=== PATIENT | female | born 1965 | race African-American/Black ===

== ENCOUNTER 2020-05-24 16:52 | Observation (INO) ==
[2020-05-24] MEDS ORDERED: SODIUM CHLORIDE 0.9% 1,000 ML IV STA ×2 (17:33→18:24)
[2020-05-24 17:59] LABS: Basophils % 0.3 % (0.0-0.8); Eosinophils # 0.1 10*3/uL (0.0-0.87); Eosinophils % 0.6 % (0.00-10.9); Hemoglobin 12.2 GM/DL (12.0-16.0); Immature Granulocytes % 0.4 %; Immature Granulocytes Absolute 0.04 #; Lymphocytes # 2.9 10*3/uL (1.4-4.0); Lymphocytes % 30.5 % (21.3-54.2); Mean Corpuscular HGB Conc 30.5 GM/DL (32-36); Mean Corpuscular Volume 91.1 FL (87-102); Mean Platelet Volume 11.8 FL (9.6-12.0); Neutrophils % 63.2 % (38.7-73.9); Platelet Count 289 T/CUMM (130-400); Red Blood Count 4.39 MC/CUMM (3.8-5.5); Red Cell Distribution Width 14.5 % (9.3-17.3); White Blood Count 9.6 T/CUMM (4-12)
[2020-05-24 18:19] LABS: Albumin 2.9 G/DL (3.4-5.0); Bilirubin,Total 0.6 MG/DL (0.2-1.0); Calcium 9.4 MG/DL (8.5-10.1); Osmolality,Calculated 316.8 MOS/KG (273-304); Total Protein 7.9 G/DL (6.4-8.3)
[2020-05-24 18:21] LABS: Amorphous Crystals,Urine Occasional /HPF (Few); Bilirubin,Urine Negative (Negative); Blood, Urine Negative (Negative); Glucose,Urine (UA) >=500 mg/dL (Negative); Ketones,Urine Negative (Negative); Nitrite,Urine Negative (Negative); Protein,Urine 100 MG/DL; Squamous Epithelial Cell,Urine Occasional /HPF (0-10); Urine Appearance Slightly Hazy (Clear); Urine Color Yellow (Yellow); Urine Specific Gravity 1.023 (1.001-1.035); Urine Urobilinogen < 2.0 EU/DL (0.2-1.0)
[2020-05-24] MEDS ORDERED: ONDANSETRON 4 MG/2 ML VIAL IV STA (18:24)
[2020-05-24] MEDS ORDERED: INSULIN REGULAR 100 UNIT/ML SUBCUT STA (18:24)
[2020-05-24 18:36] LABS: Barbiturates Screen,Urine Negative (Negative); Benzodiazepines Screen,Urine Negative (Negative); Cannabinoid Screen,Urine Negative (Negative); Opiate Screen,Urine Negative (Negative); Phencyclidine Screen,Urine Negative (Negative)
[2020-05-24] MEDS ORDERED: INSULIN REGULAR 100 UNIT/ML IV STA (19:47)
[2020-05-24] MEDS ORDERED: GLUCAGON 1 MG VIAL IM PRN (20:13)
[2020-05-24] MEDS ORDERED: DEXTROSE 50% 25 GM/50 ML VIAL IV PRN (20:13)
[2020-05-24] MEDS ORDERED: NICOTINE 21 MG/24 HR PATCH TRANSDERM PRN (20:18)
[2020-05-24] MEDS ORDERED: hydrALAZINE 20 MG/1 ML VIAL IV PRN (20:18)
[2020-05-24] MEDS ORDERED: guaiFENesin/DM ER 600-30 MG TABLET PO PRN (20:18)
[2020-05-24] MEDS ORDERED: diphenhydrAMINE CAP 25 MG CAPSULE PO PRN (20:18)
[2020-05-24] MEDS ORDERED: ONDANSETRON 4 MG/2 ML VIAL IV PRN (20:18)
[2020-05-24] MEDS ORDERED: ZALEPLON 5 MG CAPSULE PO PRN (20:18)
[2020-05-24] MEDS ORDERED: ACETAMINOPHEN 325 MG TABLET PO PRN (20:18)
[2020-05-24] MEDS ORDERED: SODIUM CHLORIDE 0.9% 1,000 ML IV SCH (23:45)
[2020-05-25] MEDS ORDERED: POTASSIUM CHLORIDE 20 MEQ TABLET PO ONE
[2020-05-25] MEDS: INSULIN LISPRO 100 UNIT/ML SUBCUT SCH ×4 (01:18→13:51)
[2020-05-25] MEDS ORDERED: cloNIDine 0.1 MG TABLET PO PRN (02:22)
[2020-05-25 06:33] LABS: Albumin 2.7 G/DL (3.4-5.0); Bilirubin,Total 0.8 MG/DL (0.2-1.0); Calcium 9.4 MG/DL (8.5-10.1); Total Protein 7.3 G/DL (6.4-8.3)
[2020-05-25] MEDS ORDERED: glipiZIDE 5 MG TABLET PO SCH (08:39)
[2020-05-25] MEDS ORDERED: INSULIN GLARGINE 100 UNIT/ML SUBCUT SCH (09:00)
[2020-05-25] MEDS ORDERED: PANTOPRAZOLE 40 MG TABLET PO SCH (09:00)
[2020-05-25 09:36] VITALS: BP 132/65
[2020-05-25] MEDS ORDERED: ENOXAPARIN 40 MG/0.4 ML SYRINGE SUBCUT SCH (15:00)
[2020-05-25] MEDS ORDERED: LACTULOSE 20 GM/30 ML UDCUP PO PRN (16:02)
== END 2020-05-25 17:35 | disposition home or self-care (01) ==
LOC: N.EDINP 16:52 → N.ED 16:52 → SUPCPDRO 20:24 → N.EDINP 05-25 01:51 → N.4E 05-25 02:20
PROVIDERS: ADMIT Internal Medicine; ATTEND Internal Medicine